=== PATIENT | female | born 1990 | race Caucasian/White ===

== ENCOUNTER 2019-01-29 09:49 | Emergency (ER) | payer BC, OTHER ==
[2019-01-29 10:56] LABS: Absolute Lymphocytes (CBC) 1.2 K/uL (0.7-4.9); Absolute Monocytes 0.3 K/uL (0.1-1.3); Absolute Neutrophil 3.5 K/uL (1.8-8.0); Basophils % 0.3 % (0-1.3); Eosinophils % 0.9 % (0-4.4); Hematocrit 42.3 % (36.0-45.0); Lymphocytes % 23.6 % (15.3-44.8); MPV 9.2 fL (7.6-11.3); Monocytes % 5.8 % (3.3-12.3); RBC Red Blood Cell Count 4.88 M/uL (3.86-4.86)
[2019-01-29 11:12] LABS: ALT/SGPT 25 U/L (12-78); AST/SGOT 20 U/L (15-37); Albumin 4.3 g/dL (3.4-5.0); Alkaline Phosphatase 54 U/L (45-117); BUN Blood Urea Nitrogen 14 mg/dL (7-18); Bicarbonate 27 mmol/L (21-32); Bilirubin Direct 0.1 mg/dL (0-0.2); Bilirubin Total 0.4 mg/dL (0.2-1.0); Glucose Level 75 mg/dL (74-106); Potassium 4.5 mmol/L (3.5-5.1); Protein, Total 7.9 g/dL (6.4-8.2); Sodium Level 141 mmol/L (136-145)
--- NOTE | 2019-01-29 11:14 | EKG ---
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
--- NOTE | 2019-01-29 11:42 | ER ---
Nurse's Notes [facility] Name: Talya Hall Age: 28 yrs Sex: Female : 1990 Arrival Date: 01/29/2019 Time: 09:53 Bed 8 Private MD: Diagnosis: Syncope and collapse-Neurocardiogenic Syncope Presentation: 01/29 10:24 Presenting complaint: Patient states: i have this passing out episode when im on stress hj and my lower belly is cramping and i fell like pain on my rectal area; denies N/V; denies discharges at the rectal area;. Transition of care: patient was not received from another setting of care. Onset of symptoms was January 29, 2019. Risk Assessment: Do you want to hurt yourself or someone else? Patient reports no desire to harm self or others. Initial Sepsis Screen: Does the patient meet any 2 criteria? No. Patient's initial sepsis screen is negative. Does the patient have a suspected source of infection? No. Patient's initial sepsis screen is negative. Care prior to arrival: None. 10:24 Method Of Arrival: Ambulatory 10:24 Acuity: MONICA 3 hj Triage Assessment: 10:26 General: Appears in no apparent distress. uncomfortable, Behavior is calm, cooperative, hj appropriate for age. Pain: Complains of pain in abdomen. 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 - Social history:: Smoking status: Patient/guardian denies using tobacco, Patient uses alcohol, occasionally. - Ebola Screening: : Patient negative for fever greater than or equal to 101.5 degrees Fahrenheit, and additional compatible Ebola Virus Disease symptoms Patient denies exposure to infectious person Patient denies travel to an Ebola-affected area in the 21 days before illness onset. Screenin:26 Abuse screen: Denies threats or abuse. Denies injuries from another. Nutritional hj screening: No deficits noted. Tuberculosis screening: No symptoms or risk factors identified. Fall Risk None identified. Vital Signs: 10:27 BP 105 / 67; Pulse 66; Resp 18; Temp 97.6(O); Pulse Ox 100% on R/A; Weight 58.97 kg; hj Height 5 ft. 1 in. (154.94 cm); Pain 2/10; 11:49 BP 106 / 68; Pulse 67; Resp 18; Pulse Ox 100% on R/A; hj 10:27 Body Mass Index 24.56 (58.97 kg, 154.94 cm) hj ED Course: 09:53 Patient arrived in ED. rg4 10:10 Jerry Gregorio PA is PHCP. jr8 10:10 Howie Stone MD is Attending Physician. jr8 10:11 Tyler Gonzales, RN is Primary Nurse. hj 10:25 Triage completed. hj 10:27 Arm band placed on right wrist. hj 10:27 Patient has correct armband on for positive identification. Placed in gown. Bed in low hj position. Call light in reach. Side rails up X 1. 10:52 EKG done, by diamond powder technician. reviewed by Jerry MOREL. at1 11:40 Billy Hayes MD is Referral Physician. jr8 11:48 No provider procedures requiring assistance completed. Patient did not have IV access hj during this emergency room visit. Administered Medications: No medications were administered Outcome: 11:41 Discharge ordered by . jr8 11:48 Patient left the ED. aa5 11:49 Discharged to home ambulatory. 11:49 Condition: stable 11:49 Discharge instructions given to patient, Instructed on discharge instructions, follow up and referral plans. Demonstrated understanding of instructions, follow-up care. Signatures: Jackie Tolbert RN LEVON aaJerry Bravo PA PA jr8 Avis Diaz, imaging center manager EKG Tat1 Tyler Gonzales, LEVON RN Josefina Eugene rg4
--- NOTE | 2019-01-29 11:42 | EDPHYS ---
Physician Documentation [facility] Name: Talya Hall Age: 28 yrs Sex: Female : 1990 Arrival Date: 01/29/2019 Time: 09:53 Bed 8 Private MD: ED Physician Howie Stone HPI: 01/29 10:54 This 28 yrs old Female presents to ER via Ambulatory with complaints of jr8 Passed Out Prior To Arrival. 10:54 The patient has experienced syncope, collapsed, lost consciousness. Onset: The jr8 symptoms/episode began/occurred acutely, today. Duration: This was a single episode. Context: occurred at home, occurred while the patient was defecating, Just prior to the episode the patient experienced dizziness. Associated injury: The patient did not suffer any apparent associated injury. Associated signs and symptoms: The patient has no apparent associated signs or symptoms. Current symptoms: Currently, the patient is not experiencing any symptoms, the patient feels back to baseline, no decreased level of consciousness, no confusion, no dysphasia, no headache, no paralysis, no visual changes. The patient has experienced a previous episode. The patient has not recently seen a physician. Patient stated that about 1 month ago had intense lower abdominal cramping along with cold sweats. Had used the restroom and passed soft stool but passed out at that time. Stated that it happened again with same exact symptoms. Called husbands PCP and told her to go to ED for further evaluation. Patient stated with blood draw has passed out before as well . 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 - Social history:: Smoking status: Patient/guardian denies using tobacco, Patient uses alcohol, occasionally. - Ebola Screening: : Patient negative for fever greater than or equal to 101.5 degrees Fahrenheit, and additional compatible Ebola Virus Disease symptoms Patient denies exposure to infectious person Patient denies travel to an Ebola-affected area in the 21 days before illness onset. ROS: 10:54 Eyes: Negative for injury, pain, redness, and discharge, ENT: Negative for injury, jr8 pain, and discharge, Neck: Negative for injury, pain, and swelling, Cardiovascular: Negative for chest pain, palpitations, and edema, Respiratory: Negative for shortness of breath, cough, wheezing, and pleuritic chest pain, Back: Negative for injury and pain, MS/Extremity: Negative for injury and deformity, Skin: Negative for injury, rash, and discoloration. 10:54 Abdomen/GI: Positive for nausea, abdominal cramps, Negative for vomiting, diarrhea, abdominal distension, anorexia, dysphagia, hematemesis, black/tarry stool, rectal pain, rectal bleeding, bowel incontinence, flatulence. 10:54 Neuro: Positive for dizziness, syncope, Negative for altered mental status, gait disturbance, headache, seizure activity, speech changes, tingling, tinnitus, tremor, visual changes, weakness. Exam: 10:54 Eyes: Pupils equal round and reactive to light, extra-ocular motions intact. Lids and jr8 lashes normal. Conjunctiva and sclera are non-icteric and not injected. Cornea within normal limits. Periorbital areas with no swelling, redness, or edema. ENT: Nares patent. No nasal discharge, no septal abnormalities noted. Tympanic membranes are normal and external auditory canals are clear. Oropharynx with no redness, swelling, or masses, exudates, or evidence of obstruction, uvula midline. Mucous membranes moist. Neck: Trachea midline, no thyromegaly or masses palpated, and no cervical lymphadenopathy. Supple, full range of motion without nuchal rigidity, or vertebral point tenderness. No Meningismus. Cardiovascular: Regular rate and rhythm with a normal S1 and S2. No gallops, murmurs, or rubs. Normal PMI, no JVD. No pulse deficits. Respiratory: Lungs have equal breath sounds bilaterally, clear to auscultation and percussion. No rales, rhonchi or wheezes noted. No increased work of breathing, no retractions or nasal flaring. Abdomen/GI: Soft, non-tender, with normal bowel sounds. No distension or tympany. No guarding or rebound. No evidence of tenderness throughout. Back: No spinal tenderness. No costovertebral tenderness. Full range of motion. Skin: Warm, dry with normal turgor. Normal color with no rashes, no lesions, and no evidence of cellulitis. MS/ Extremity: Pulses equal, no cyanosis. Neurovascular intact. Full, normal range of motion. Neuro: Awake and alert, GCS 15, oriented to person, place, time, and situation. Cranial nerves II-XII grossly intact. Motor strength 5/5 in all extremities. Sensory grossly intact. Cerebellar exam normal. Normal gait. 10:54 ECG was reviewed by the Attending Physician. jr8 Vital Signs: 10:27 BP 105 / 67; Pulse 66; Resp 18; Temp 97.6(O); Pulse Ox 100% on R/A; Weight 58.97 kg; hj Height 5 ft. 1 in. (154.94 cm); Pain 2/10; 11:49 BP 106 / 68; Pulse 67; Resp 18; Pulse Ox 100% on R/A; hj 10:27 Body Mass Index 24.56 (58.97 kg, 154.94 cm) MDM: 10:11 Patient medically screened. jr8 11:36 Differential Diagnosis: cardiac arrhythmia, drug effect, emotional response, GI bleed, jr8 idiopathic syncope, , pseudo seizure, seizure, vasovagal episode. Data reviewed: vital signs, nurses notes, lab test result(s), EKG, and as a result, I will discharge patient. Data interpreted: Pulse oximetry: on room air is 100 %. Interpretation: normal. 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 Response to treatment: the patient's symptoms have resolved after treatment. ED course: Detailed discussion with patient that her s/s are most compatible with neurocardiogenic syncope secondary to pain. ECG and blood work unremarkable. Recommended GI for the on/off severe cramping and rectal pain. Patient good with this plan and will follow up . 01/29 10:27 Order name: CBC with Diff; Complete Time: 11:02 8 01/29 10:27 Order name: Basic Metabolic Panel; Complete Time: 11:23 8 01/29 10:27 Order name: LFT's; Complete Time: 11:23 8 01/29 10:27 Order name: EKG - Nurse/Tech; Complete Time: 10:53 8 01/29 10:27 Order name: EKG; Complete Time: : jr8 EC:54 Rate is 63 beats/min. Rhythm is regular, Normal Sinus Rhythm. QRS [place] is Normal. OR jr8 interval is normal at 134 msec. QRS interval is normal at 82 msec. QT interval is normal at 421 msec. No Q waves. T waves are Normal. No ST changes noted. Clinical impression: Normal ECG and No evidence of ischemia. Interpreted by me. Reviewed by me. Administered Medications: No medications were administered Disposition: 01/29/19 11:41 Discharged to Home. Impression: Syncope and collapse - Neurocardiogenic Syncope . - Condition is Stable. - Discharge Instructions: Vasovagal Syncope, Pediatric. - Medication Reconciliation Form, Thank You Letter, Antibiotic Education, Prescription Opioid Use, Work release form form. - Follow up: Billy Hayes MD; When: 1 week; Reason: Recheck today's complaints, Continuance of care, Re-evaluation by your physician. - Problem is new. - Symptoms have improved. Addendum: 02/01/2019 00:09 Co-signature as Attending Physician, Howie Stone MD. g s Signatures: Dispatcher [employer] EDMS Jackie Tolbert RN RN aa5 Jerry Gregorio PA PA jr8 Tyler Gonzales RN RN Howie Stone MD MD Corrections: (The following items were deleted from the chart) 01/29 11:48 11:41 01/29/2019 11:41 Discharged to Home. Impression: Syncope and collapse - aa5 Neurocardiogenic Syncope . Condition is Stable. Forms are Medication Reconciliation Form, Thank You Letter, Antibiotic Education, Prescription Opioid Use. Follow up: Billy Hayes; When: 1 week; Reason: Recheck today's complaints, Continuance of care, Re-evaluation by your physician. Problem is new. Symptoms have improved. jr8
== END 2019-01-29 11:48 | disposition home or self-care (01) ==
LOC: ER 09:49
DX: R55 Syncope and collapse (principal)
CPT/HCPCS: 36415; 80048; 80076; 85025; 93005; 99283